=== PATIENT | female | born 1985 | race American Indian/Alaskan Native ===

== ENCOUNTER 2016-05-17 15:29 | Emergency (ER) | payer SELFPAY ==
[2016-05-17] MEDS ORDERED: DECADRON ONE ×2 (21:23→22:18)
--- NOTE | 2016-05-17 21:45 | Emergency Department Report ---
- General Chief complaint: Skin Rash Stated complaint: DERMATITIS Time Seen by Provider: 05/17/16 21:41 Source: patient Mode of arrival: Ambulatory Limitations: No Limitations - History of Present Illness Initial comments: Patient reports eczema flareup that started 2 weeks ago. [facility] 04/17/16 complaint: rash Onset/Timin -: week(s) Tetanus Up to Date: yes Location: generalized Severity: severe Severity scale (0 -10): 10 Quality: aching Consistency: constant Improves with: none Worsens with: none Context: none Associated symptoms: itching Treatments Prior to Arrival: none - Related Data Home Medications Medication Instructions Recorded Confirmed Last Taken Divalproex Dr [Cara NAVA] 500 mg PO BID 05/17/16 05/17/16 05/17/16 Duloxetine HCl [Cymbalta] 20 mg PO QDAY 05/17/16 05/17/16 05/17/16 Ziprasidone [Geodon] 180 mg PO BID 05/17/16 05/17/16 05/17/16 Previous Rx's Medication Instructions Recorded Last Taken Type Cephalexin [Keflex] 500 mg PO Q12HR #14 cap 05/17/16 Unknown Rx Hydroxyzine HCl [hydrOXYzine] 25 mg PO TID #30 tablet 05/17/16 Unknown Rx Triamcinolone 0.1% [Kenalog 0.1% 1 applic TP TID #1 tube 05/17/16 Unknown Rx CREAM] Allergies Allergy/AdvReac Type Severity Reaction Status Date / Time diphenhydramine HCl Allergy Rash Verified 05/17/16 16:26 [From Benadryl] Abscess Boil HPI - HPI Chief Complaint: Skin Rash Stated Complaint: DERMATITIS Time Seen by Provider: 05/17/16 21:41 Home Medications: Home Medications Medication Instructions Recorded Confirmed Last Taken Divalproex [Cara NAVA] 500 mg PO BID 05/17/16 05/17/16 05/17/16 Duloxetine HCl [Cymbalta] 20 mg PO QDAY 05/17/16 05/17/16 05/17/16 Ziprasidone [Geodon] 180 mg PO BID 05/17/16 05/17/16 05/17/16 Previous Rx's Medication Instructions Recorded Last Taken Type Cephalexin [Keflex] 500 mg PO Q12HR #14 cap 05/17/16 Unknown Rx Hydroxyzine HCl [hydrOXYzine] 25 mg PO TID #30 tablet 05/17/16 Unknown Rx Triamcinolone 0.1% [Kenalog 0.1% 1 applic TP TID #1 tube 05/17/16 Unknown Rx CREAM] Allergies/Adverse Reactions: Allergies Allergy/AdvReac Type Severity Reaction Status Date / Time diphenhydramine HCl Allergy Rash Verified 05/17/16 16:26 [From Benadryl] ED Review of Systems ROS: Stated complaint: DERMATITIS Other details as noted in HPI Constitutional: denies: chills, diaphoresis, fever, malaise, weakness Eyes: denies: eye pain, eye discharge, vision change ENT: denies: ear pain, throat pain, dental pain, hearing loss, epistaxis, congestion Respiratory: denies: cough, orthopnea, shortness of breath, SOB with exertion, SOB at rest, stridor, wheezing Cardiovascular: denies: chest pain, palpitations, dyspnea on exertion, orthopnea , edema, syncope, paroxysmal nocturnal dyspnea Gastrointestinal: denies: abdominal pain, nausea, vomiting, diarrhea, constipation Musculoskeletal: denies: back pain, joint swelling, arthralgia, myalgia Skin: rash (generalized), pruritus (generalized). denies: change in color, change in hair/nails Hematological/Lymphatic: denies: easy bleeding, easy bruising, swollen glands ED Past Medical Hx - Past Medical History Previous Medical History?: Yes Hx Psychiatric Treatment: (shizoaffective) Additional medical history: excema - Surgical History Past Surgical History?: Yes Additional Surgical History: left arm surgery - Social History Smoking Status: Current Every Day Smoker Substance Use Type: None - Medications Home Medications: Home Medications Medication Instructions Recorded Confirmed Last Taken Type Cephalexin [Keflex] 500 mg PO Q12HR #14 cap 05/17/[address] [DepaKOTE DR] 500 mg PO BID 05/17/16 05/17/16 05/17/16 History Duloxetine HCl [Cymbalta] 20 mg PO QDAY 05/17/16 05/17/16 05/17/16 History Hydroxyzine HCl [hydrOXYzine] 25 mg PO TID #30 tablet 05/17/16 Unknown Rx Triamcinolone 0.1% [Kenalog 0.1% 1 applic TP TID #1 tube 05/17/16 Unknown Rx CREAM] Ziprasidone [Geodon] 180 mg PO BID 05/17/16 05/17/16 05/17/16 History ED Physical Exam - General Limitations: No Limitations General appearance: alert, in no apparent distress - Head Head exam: Present: atraumatic, normocephalic - Eye Eye exam: Present: normal appearance Pupils: Present: normal accommodation - ENT ENT exam: Present: normal exam, normal orophraynx, mucous membranes moist. Absent: mucous membranes dry - Neck Neck exam: Present: normal inspection, full ROM - Respiratory Respiratory exam: Present: normal lung sounds bilaterally. Absent: respiratory distress, wheezes, rales, rhonchi, stridor, chest wall tenderness, accessory muscle use, decreased breath sounds, prolonged expiratory - Cardiovascular Cardiovascular Exam: Present: regular rate, normal rhythm, normal heart sounds. Absent: systolic murmur, diastolic murmur, rubs, gallop, clicks, JVD, S3, S4 - GI/Abdominal GI/Abdominal exam: Present: soft, normal bowel sounds - Back Exam Back exam: Present: normal inspection, full ROM. Absent: CVA tenderness (R), CVA tenderness (L) - Neurological Exam Neurological exam: Present: alert, oriented X3, CN II-XII intact, normal gait, reflexes normal. Absent: motor sensory deficit - Skin Skin exam: Present: warm, dry, intact, rash (dry and scaly dermatitis, more pronounced on flexor areas), erythema (left flexor area), urticaria. Absent: normal color, cyanosis, diaphoretic, vesicles, petechiae, pallor, abrasion, ecchymosis ED Course Vital Signs 05/17/16 05/17/16 16:22 16:30 Temperature 100.1 F H 98.7 F Pulse Rate 96 H 107 H Respiratory 20 20 Rate Blood Pressure 124/75 105/62 O2 Sat by Pulse 100 100 Oximetry - Reevaluation(s) Reevaluation #1: 05/17/16 21:42 Decadron injection ordered ED Medical Decision Making - Lab Data Vital Signs 05/17/16 05/17/16 16:22 16:30 Temperature 100.1 F H 98.7 F Pulse Rate 96 H 107 H Respiratory 20 20 Rate Blood Pressure 124/75 105/62 O2 Sat by Pulse 100 100 Oximetry - Medical Decision Making During the course of ED, decadron injection ordered. The patient was sent home with prescriptions for Keflex, Hydroxyzine and Triamcinolone 0.1%, instructed to follow up with the selected referral given at discharge, she verbalized understanding - Differential Diagnosis Eczema, Contact Dermatitis, Allergic Dermatitis Critical care attestation.: If time is entered above; I have spent that time in minutes in the direct care of this critically ill patient, excluding procedure time. ED Disposition Clinical Impression: Eczema Qualifiers: Eczema type: unspecified Qualified Code(s): L30.9 - Dermatitis, unspecified Disposition: DISCHARGED TO HOME OR SELFCARE Is pt being admited?: No Does the pt Need Aspirin: No Condition: Stable Instructions: Eczema (ED) Additional Instructions: Take medication as directed. Avoid excessive bathing. Use tepid water and mild soaps. Use frequent use of emollients such as Aquaphor ointment. Follow up with the selective referral given at discharge. Prescriptions: Cephalexin [Keflex] 500 mg PO Q12HR #14 cap Triamcinolone 0.1% [Kenalog 0.1% CREAM] 1 applic TP TID #1 tube Hydroxyzine HCl [hydrOXYzine] 25 mg PO TID #30 tablet Referrals: PRIMARY CAREMD [Primary Care Provider] - 3-5 Days SALAS HILLMAN MD [Staff Physician] - 3-5 Days Forms: Work/School Release Form(ED) Time of Disposition: 21:47
[2016-05-17] MEDS ORDERED: DECADRON IV ONE (21:55)
[2016-05-17 23:19] VITALS: BP 110/65
== END 2016-05-17 21:52 | disposition home or self-care (01) ==
LOC: ED 15:29
DX: L30.9 Dermatitis, unspecified (principal); F17.200 Nicotine dependence, unspecified, uncomplicated; Z88.8 Allergy status to other drugs, medicaments and biological substances
CPT/HCPCS: 96374; 99282; J1100

== ENCOUNTER 2017-07-06 13:37 | Emergency (ER) | payer MEDICAID ==
[2017-07-06 13:47] VITALS: BP 130/73
--- NOTE | 2017-07-06 15:21 | Emergency Department Report ---
HPI - General Chief Complaint: Wound/Laceration Time Seen by Provider: 07/06/17 15:16 - HPI HPI: Patient with history of eczema. Comes to ED with drainage from lower extremity rash, mild swelling, increased pruritus. She has not been taking any medications for his symptoms and the legs appears to be poorly kept. Her symptoms are not accompanied by fever. ED Past Medical Hx - Past Medical History Previous Medical History?: Yes Hx Hypertension: No Hx Psychiatric Treatment: (shizoaffective) Additional medical history: eczema - Surgical History Past Surgical History?: Yes Additional Surgical History: left arm surgery - Social History Smoking Status: Current Every Day Smoker Substance Use Type: None - Medications Home Medications: Home Medications Medication Instructions Recorded Confirmed Last Taken Type Cephalexin [Keflex] 500 mg PO Q12HR #14 cap 05/17/[address] [DepaKOTE DR] 500 mg PO BID 05/17/16 05/17/16 05/17/16 History Duloxetine HCl [Cymbalta] 20 mg PO QDAY 05/17/16 05/17/16 05/17/16 History Hydroxyzine HCl [hydrOXYzine] 25 mg PO TID #30 tablet 05/17/16 Unknown Rx Triamcinolone 0.1% [Kenalog 0.1% 1 applic TP TID #1 tube 05/17/16 Unknown Rx CREAM] Ziprasidone [Geodon] 180 mg PO BID 05/17/16 05/17/16 05/17/16 History Sulfamethoxazole/Trimethoprim 1 each PO BID #14 tablet 07/06/17 Unknown Rx [Bactrim DS TAB] Triamcinolone 0.1% [Kenalog 0.1% 1 applic TP TID #1 tube 07/06/17 Unknown Rx OINT] ED Review of Systems ROS: Stated complaint: LEGS INFECTED/EZEMA Other details as noted in HPI Comment: All other systems reviewed and negative Endocrine: no symptoms reported Genitourinary: as per HPI Skin: rash, pruritus Physical Exam - Physical Exam Vital Signs: Vital Signs 07/06/17 13:43 Temperature 98.5 F Pulse Rate 97 H Respiratory 20 Rate Blood Pressure 130/73 O2 Sat by Pulse 100 Oximetry Physical Exam: Gen. alert and oriented 3 in no distress Head atraumatic normocephalic Eyes PERR LA EOMI Chest regular rate and rhythm normal S1-S2 lungs clear bilaterally Abdomen soft nondistended Back no point tenderness paravertebral tenderness Neuro no focal deficit. Psych normal mood. Extremity: Dermatitis associated with swelling in bilateral lower extremities. ED Course Vital Signs 07/06/17 13:43 Temperature 98.5 F Pulse Rate 97 H Respiratory 20 Rate Blood Pressure 130/73 O2 Sat by Pulse 100 Oximetry Critical care attestation.: If time is entered above; I have spent that time in minutes in the direct care of this critically ill patient, excluding procedure time. ED Disposition Clinical Impression: Atopic dermatitis, Cellulitis Disposition: [id number]-01 TO HOME OR SELFCARE Is pt being admited?: No Does the pt Need Aspirin: No Condition: Stable Prescriptions: Sulfamethoxazole/Trimethoprim [Bactrim DS TAB] 1 each PO BID #14 tablet Triamcinolone 0.1% [Kenalog 0.1% OINT] 1 applic TP TID #1 tube Referrals: PRIMARY CARE, [Primary Care Provider] - 3-5 Days
== END 2017-07-06 15:26 | disposition home or self-care (01) ==
LOC: ED 13:37
DX: L20.9 Atopic dermatitis, unspecified (principal); L03.116 Cellulitis of left lower limb; L03.115 Cellulitis of right lower limb; F25.9 Schizoaffective disorder, unspecified; F17.200 Nicotine dependence, unspecified, uncomplicated; Z88.8 Allergy status to other drugs, medicaments and biological substances
CPT/HCPCS: 99282